=== PATIENT | female | born 1965 | race Asian ===

== ENCOUNTER 2018-08-13 07:34 | Outpatient (CLI) | payer OTHER ==
--- NOTE | 2018-08-13 09:40 | MRI Report ---
Reason: RADICULOPATHY,CERVICAL REGION Procedure Date: 08/13/2018 Accession Number: [id number] / [id number] Procedure: MRI - Cervical Spine W/O CPT Code: FULL RESULT: EXAM: MRI CERVICAL SPINE WITHOUT CONTRAST EXAM DATE: 08/13/2018 08:39 AM. CLINICAL HISTORY: Radiculopathy, cervical region. Neck pain, reportedly radiating to the right arm. COMPARISONS: MRI CERVICAL SPINE 05/29/2012 12:32 PM. TECHNIQUE: Multiplanar, multisequence T1-weighted and fluid-sensitive sequences of the cervical spine without contrast. Other: None. FINDINGS: Neurologic Structures: The visualized posterior fossa structures are unremarkable. No signal abnormality in the visualized spinal cord. Alignment: No interval change of alignment. Bone Marrow: Vertebral body heights are maintained. No acute marrow edema. Interspace Levels/Facets: C1-C2: Unremarkable. C2-C3: Minimal facet arthropathy on the left. No disk herniation or developing stenosis. C3-C4: Minimal facet arthropathy on the left. No disk herniation or developing stenosis. C4-C5: Stable appearance, no developing disk herniation or stenosis. C5-C6: Similar findings of mild degenerative disk disease with marginal spurring and broad-based posterior disk protrusion with mild ventral thecal sac indentation but no significant or progressive canal stenosis or cord impingement. Patent neural foramina bilaterally. C6-C7: Unremarkable. C7-T1: Unremarkable. Musculature: Normal. No edema or fatty atrophy. Other: The paravertebral and prevertebral soft tissues are normal. IMPRESSION: No acute abnormality or significant change. Mild degenerative changes, most evident at C5-C6 but without evidence for significant stenosis or neural impingement. RADIA
== END 2018-08-13 07:35 | disposition home or self-care (01) ==
LOC: DI 07:34
PROVIDERS: ATTEND Family Medicine
DX: M47.9 Spondylosis, unspecified (principal); M50.222 Other cervical disc displacement at C5-C6 level; M50.322 Other cervical disc degeneration at C5-C6 level
CPT/HCPCS: 72141

== ENCOUNTER 2018-08-13 07:36 | Outpatient (CLI) | payer OTHER ==
--- NOTE | 2018-08-13 09:22 | MRI Report ---
Reason: LOW BACK PAIN Procedure Date: 08/13/2018 Accession Number: [id number] / [id number] Procedure: MRI - Lumbar Spine W/O CPT Code: FULL RESULT: EXAM: MRI LUMBAR SPINE WITHOUT CONTRAST EXAM DATE: 08/13/2018 08:38 AM. CLINICAL HISTORY: Low back pain. Right side sciatica. COMPARISON: LUMBAR SPINE 08/16/2010 1:29 PM. TECHNIQUE: Multiplanar, multisequence T1-weighted and fluid-sensitive sequences of the lumbar spine from T12 to S1 without contrast. Other: None. FINDINGS: Spinal Canal: The conus terminates at T12-L1. The conus medullaris and cauda equina are unremarkable. Alignment: No scoliosis or spondylolisthesis. Bone Marrow: Five [id number] lumbar vertebral bodies are assumed. No gross fractures or bone lesions. No bone marrow replacement. Disk Levels/Facets: T12-L1: Unremarkable. L1-L2: Unremarkable. L2-L3: Unremarkable. L3-L4: No stenosis or disk extrusion. Stable mild degenerative marginal spurring and shallow left anterior disk bulge. L4-L5: Mild degenerative disk disease without additional disk space narrowing. Minimal marginal spurring. Shallow circumferential disk bulge. Stable additional asymmetric but minimal left of midline protrusion. Stable posterior left of midline annular fissure. No significant or progressive stenosis or developing nerve root compression. L5-S1: Similar findings of mild degenerative disk disease. Unremarkable facets. Patent central canal and left foramen. There is now potentially progressive mild to moderate foraminal stenosis on the right from mildly more prominent asymmetric right intraforaminal disk protrusion with marginal spurring and an annular fissure. Musculature: Normal. No edema or fatty atrophy. Other: None. IMPRESSION: 1. Stable unremarkable findings at T12-L1 through L2-L3. 2. Mild degenerative changes without stenosis at L3-L4. 3. Stable degenerative changes without significant-appearing or progressive stenosis at L4-L5. 4. Mild to moderate foraminal stenosis on the right, likely more prominent from a relatively mild but progressive intraforaminal asymmetric disk protrusion with osteophyte. Comment: The following findings are so common in adults without low back pain that while we report their presence, they must be interpreted with caution and in the context of the clinical situation. (Reference Jimmyk et al, Spine 2001) Prevalence of findings in patients without low back pain: Disk degeneration (any evidence): 92% Disk desiccation/T2 signal loss: 83% Disk height loss: 56% Disk bulge: 64% Disk protrusion: 32% Annular tear/high intensity zone: 38% RADIA
== END 2018-08-13 07:37 | disposition home or self-care (01) ==
LOC: DI 07:36
PROVIDERS: ATTEND Family Medicine
DX: M51.36 Other intervertebral disc degeneration, lumbar region (principal); M48.061 Spinal stenosis, lumbar region without neurogenic claudication; M51.26 Other intervertebral disc displacement, lumbar region; M51.27 Other intervertebral disc displacement, lumbosacral region; M47.9 Spondylosis, unspecified; M50.222 Other cervical disc displacement at C5-C6 level; M50.322 Other cervical disc degeneration at C5-C6 level
CPT/HCPCS: 72141; 72148

== ENCOUNTER 2018-10-06 08:53 | Outpatient (CLI) | payer OTHER | END 2018-10-06 08:54 | disposition short-term general hospital (02) | LOC: EMS 08:53 | PROVIDERS: ATTEND Surgery | DX: R07.89 Other chest pain (principal); R10.13 Epigastric pain; M79.602 Pain in left arm; M54.2 Cervicalgia | CPT/HCPCS: A0425; A0433 ==

== ENCOUNTER 2018-11-10 05:49 | Day surgery (SDC) | payer OTHER ==
[2018-11-10] MEDS ORDERED: ceFAZolin 2 GM/50 ML 2 GM/50 ML BAG IV ONE (06:30)
--- NOTE | 2018-11-10 07:05 | ANESTHESIA ---
Pre-Anesthesia VS, & Labs - Diagnosis perimenopausal bleeding - Procedure Myosure hysteroscopy, endometrial ablation novasure Vital Signs: Temp Pulse Resp BP Pulse Ox 36.5 C 72 16 126/86 H 99 11/10/18 06:44 11/10/18 06:44 11/10/18 06:44 11/10/18 06:44 11/10/18 06:44 Height 5 ft 4 in Weight (kg) 70.9 kg - NPO >8 hours - Is Patient ?: No Home Medications and Allergies Levothyroxine [Synthroid] 75 mcg PO DAILY 04/26/16 Aspirin [Aspirin EC] 81 mg PO 10/03/18 Carvedilol [Coreg] 12.5 mg PO BID 10/03/18 Cholecalciferol (Vitamin D3) [Vitamin D3] 1,000 unit PO 10/03/18 Clobetasol 0.05% Oint [Temovate 0.05% Oint] 1 applic TOP 10/03/18 Cyclobenzaprine [Flexeril] 10 mg PO TID PRN 10/03/18 Empagliflozin [Jardiance] 10 mg PO 10/03/18 Evolocumab [Repatha Syringe] 140 mg SQ 10/03/18 Gabapentin [Neurontin] 100 mg PO TID 10/03/18 Insulin Aspart [NovoLOG] 2 unit SUBQ DAILY 10/03/18 Insulin Detemir [Levemir Flextouch] 35 unit SUBQ BID 10/03/18 Lidocaine [Topicaine 5] 113 gm TP 10/03/18 Liraglutide [Victoza 2-Bong] 1.8 mg SQ 10/03/18 Losartan [Cozaar] 25 mg PO DAILY 10/03/18 Omeprazole 20 mg PO 10/03/18 Spironolactone [Aldactone] 25 mg PO BID 10/03/18 Tretinoin [Retin-A] 20 gm TP 10/03/18 Turmeric Root Extract [Turmeric Curcumin] 500 mg PO 10/03/18 Vitamin B Complex 1 each PO 10/03/18 Allergies/Adverse Reactions: Allergies Allergy/AdvReac Type Severity Reaction Status Date / Time Sulfa (Sulfonamide AdvReac Unknown Verified 10/03/18 11:38 Antibiotics) sulfadiazine AdvReac fever Verified 04/26/16 06:01 Anes History & Medical History - Anesthetic History Anesthesia Complications: reports: No previous complications Family history of Anesthesia Complications: Denies Family history of Malignant Hyperthermia: Denies - Medical History Cardiovascular: reports: Hypertension, High cholesterol, Coronary artery disease, [place] Pulmonary: reports: None Gastrointestinal: reports: GERD Urinary: reports: None Musculoskeletal: reports: Chronic back pain, Other Endocrine/Autoimmune: reports: Type 2 diabetes, HyPOthyroidism Skin: reports: None Smoking Status: Never smoker - Surgical History General: Colonoscopy Cardiothoracic: Coronary stent Gynecologic: LEEP (Cervical surgery) Exam General: Alert, Oriented x3 Dental: WNL Mouth Openin Fingerbreadth Neck Mobility: Normal Mallampati classification: II Thyromental Distance: 4-6 cm Respiratory: Lungs clear, Normal breath sounds Cardiovascular: Regular rate Neurological: Normal speech Mental/Cognitive Status: Alert/Oriented X3, Normal for patient Cognitive Status: Within normal limits Plan Anesthesia Type: General Consent for Procedure(s) Verified and Reviewed: Yes Code Status: Attempt Resuscitation ASA classification: 3-Severe systemic disease Is this case an emergency?: No
[2018-11-10] MEDS ORDERED: LACTATED RINGERS 1,000 ML IV ONE (07:06)
[2018-11-10] MEDS ORDERED: VASOPRESSIN 20 UNIT/ML VIAL ONE (07:27)
[2018-11-10] MEDS ORDERED: LIDOCAINE MPF 2%-EPI 1:200000 20 ML VIAL ONE (07:27)
[2018-11-10] MEDS ORDERED: DEXAMETHASONE 4 MG/ML VIAL IVP ONE (08:05)
[2018-11-10] MEDS ORDERED: LIDOCAINE-MPF 2% 5 ML VIAL IM ONE (08:05)
[2018-11-10] MEDS ORDERED: PROPOFOL 200 MG/20 ML VIAL IVP ONE (08:05)
[2018-11-10] MEDS ORDERED: ONDANSETRON 4 MG/2 ML VIAL IVP ONE (08:05)
[2018-11-10] MEDS ORDERED: fentaNYL 100 MCG/2 ML VIAL IVP ONE (08:05)
[2018-11-10] MEDS ORDERED: MIDAZOLAM 2 MG/2 ML VIAL IVP ONE (08:05)
[2018-11-10] MEDS ORDERED: KETOROLAC 30 MG/ML VIAL IVP ONE (08:05)
[2018-11-10] MEDS ORDERED: LIDOCAINE 2%-EPI 1:100000 20 ML MDV SUBQ ONE (08:07)
[2018-11-10] MEDS ORDERED: ONDANSETRON 4 MG/2 ML VIAL IVP PRN (08:40)
[2018-11-10] MEDS ORDERED: HYDROcod/ACETAM 10 MG/325 MG TABLET PO PRN (08:40)
--- NOTE | 2018-11-10 08:44 | OPERATIVE REPORT ---
Operative Report - General Procedure Date: 11/10/18 Planned Procedure: Hysteroscopy, dilatation and curettage, endometrial ablation Pre-Op Diagnosis: Abnormal uterine bleeding Procedure Performed: Hysteroscopy, dilatation and curettage and Myosure, endometrial ablation (Novasure) Post Op Diagnosis: Abnormal uterine bleeding, endometrial polyp - Procedure Note Primary Surgeon: Dr. Tatiana Lion Secondary Surgeon: None Anesthesia Provider: Dr. Dwain Navarro Anesthesia Technique: General LMA Pathology: 1. Endocervical curettings 2. Endometrial polyp 3. Endometrial curettings IV Fluids (mL): 500 Estimated Blood Loss (mL): 4 Urine Output (mL): 50 Indications: The patient is a 53-year-old 2 para 2 female here for surgical evaluation and management of abnormal uterine bleeding. Her symptoms started in February of last year. She has a history of very heavy menses and leaking around her pad, followed by no bleeding for 5-6 months last year, during which time she thought she may be menopausal. She then had a normal cycle in January. February to May, she had persistent, nearly daily bleeding that ranged from light to moderate in flow (spotting to heavy with clots). It then stopped and then restarted in May 2018 and continued until August 2018. Endometrial biopsy was performed and benign. Pelvic ultrasound was performed and showed a normal endometrial stripe with no other abnormal findings. After review of management options, the patient elected for a hysteroscopy, dilation and curettage, and endometrial ablation. The risks, benefits, limitations, alternatives, and expectations of surgery were discussed, and the consent was reviewed and signed prior to the date of surgery. Findings: Exam under anesthesia noted a retroverted uterus that was approximately 7 weeks in size. Operative findings noted a mildly stenotic cervical os, which dilated readily Hegar dilators. The uterine cavity length was measured to be 7 cm. The endometrial cavity width was noted to be 3 cm. Hysteroscopic findings noted an approximately 1 cm endometrial polyp originating from the right fundus. There also appeared to be a 0.5 cm submucosal fibroid anterior to the left tubal ostium. Post-Myosure, the polypoid tissue was completely resected, but the submucosal fibroid could not be reached with the Myosure. The endometrial ablation power was noted to be 66 W. Time of ablation was 1 minute 14 seconds. Hysteroscopic fluid deficit was 65 mL. Post ablation hysteroscopy noted excellent cauterization throughout the endometrial cavity. Complications: None - Other Other Information/Narrative: Procedure: The patient was taken to the operating room, where general anesthesia with LMA was administered without difficulty. She was then positioned in the high dorsal lithotomy position with her lower extremities in [place] stirrups. Vagina and perineum were then prepped and draped in a sterile fashion, and an in-an-out catheterization was performed. Procedure Time-Out was then performed. A sterile bivalve speculum was then inserted into the vagina. The anterior lip of the cervix was grasped with a single toothed tenaculum. Two percent lidocaine with epinephrine was injected at the 0200, 0400, 0700, and 1000 positions for a paracervical block. Endocervical curettage was then performed. The cervix was then serially dilated with Hegar dilators until the 30 degree diagnostic Myosure hysteroscope could be inserted. Using saline for distension, the endometrial cavity was visualized and notable for the polyp and small submucosal fibroid. The majority of the polyp tissue was removed blindly using polyp forceps, labeling the tissue "endometrial polyp." A curettage was performed, sending tissue for specimen called "endometrial curettings." The Myosure device was then used to completely resect some residual polypoid tissue at the base of the pedicle. Also attempted to resect the submucosal fibroid at the left tubal ostium. However, the device could not adequately reach into the cornu. The Novasure device was placed onto the field. The uterine cavity length and width were measured, and cavity assessment passed without concerns. The ablation was then performed for 74 sec to power of 66 Sanchez. The device was then retracted, and the hysteroscope reintroduced. Post-ablation endometrium appeared well- cauterized, and the scope was then again removed. The tenaculum was then removed from the cervix, and the tenaculum sites hemostatic with gentle pressure. No bleeding was noted, and the speculum was then removed. At this point the procedure was deemed complete. The patient was then replaced supine, awakened, extubated, and transferred to the PACU in stable condition. There were no complications. Sponge, lap, and needle count were correct x 3.
[2018-11-10 09:28] VITALS: BP 139/78
== END 2018-11-10 05:50 | disposition home or self-care (01) ==
LOC: SDS 05:49
PROVIDERS: ATTEND Obstetrics & Gynecology
PROC: 0UDB8ZZ Extraction of Endometrium, Via Natural or Artificial Opening Endoscopic (ICD-10-PCS; principal; 2018-11-10 07:30)
PROC: 0UDB7ZZ Extraction of Endometrium, Via Natural or Artificial Opening (ICD-10-PCS; 2018-11-10 07:30)
DX: N93.8 Other specified abnormal uterine and vaginal bleeding (principal); N84.0 Polyp of corpus uteri; D25.0 Submucous leiomyoma of uterus; I10 Essential (primary) hypertension; I25.10 Atherosclerotic heart disease of native coronary artery without angina pectoris; I25.2 Old myocardial infarction; Z95.5 Presence of coronary angioplasty implant and graft; E11.43 Type 2 diabetes mellitus with diabetic autonomic (poly)neuropathy; Z79.4 Long term (current) use of insulin
CPT/HCPCS: 58120; 58563; J0690; J7120

== ENCOUNTER 2019-08-21 13:07 | Emergency (ER) | payer OTHER ==
[2019-08-21] MEDS ORDERED: METOPROLOL TARTRATE 50 MG TABLET PO STA (13:19)
[2019-08-21] MEDS ORDERED: ASPIRIN CHEW 81 MG TABLET PO STA (13:19)
[2019-08-21] MEDS ORDERED: HEPARIN 5,000 UNIT/ML VIAL IVP STA (13:19)
[2019-08-21] MEDS ORDERED: HEPARIN 25000UNITS/500ML (D5W) 25,000 UNIT/500 ML BAG IV STA (13:19)
[2019-08-21] MEDS ORDERED: NITROGLYCERIN SL 0.4 MG TABLET SL ONE (13:21)
[2019-08-21] MEDS ORDERED: METOPROLOL TARTRATE 50 MG TABLET ONE (13:22)
[2019-08-21] MEDS ORDERED: HEPARIN 5,000 UNIT/ML VIAL ONE (13:22)
[2019-08-21] MEDS ORDERED: ASPIRIN CHEW 81 MG TABLET ONE (13:22)
[2019-08-21] MEDS ORDERED: CLOPIDOGREL 300 MG TABLET PO ONE (13:22)
[2019-08-21] MEDS ORDERED: HEPARIN 25000UNITS/500ML (D5W) 25,000 UNIT/500 ML BAG IV ONE (13:22)
--- NOTE | 2019-08-21 13:22 | ED Physician Documentation ---
PD HPI CHEST PAIN - Stated complaint Stated Complaint: CP, SOA - History obtained from History obtained from: Patient - History of Present Illness Timing - onset: Other (54-year-old woman with history of coronary disease, a STEMI in [address] in [address]. She developed sudden onset substernal chest pressure nonradiating, currently a 3 out of 10. It started about 3-1/2 hours ago while at work at her desk. She has mild shortness of breath.) Review of Systems Ten Systems: 10 systems reviewed and negative Constitutional: denies: Fever, Chills Throat: denies: Dental pain / toothache, Sore throat Cardiac: reports: Chest pain / pressure. 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) Cardiovascular: Coronary stent - Present Medications Home Medications: Ambulatory Orders Medication Instructions Recorded Confirmed Levothyroxine [Synthroid] 75 mcg PO DAILY 04/26/16 10/03/18 Aspirin [Aspirin EC] 81 mg PO 10/03/18 Cholecalciferol (Vitamin D3) 1,000 unit PO 10/03/18 [Vitamin D3] Clobetasol 0.05% Oint [Temovate 1 applic TOP 10/03/18 0.05% Oint] Cyclobenzaprine [Flexeril] 10 mg PO TID PRN 10/03/18 10/03/18 Empagliflozin [Jardiance] 10 mg PO 10/03/18 Evolocumab [Repatha Syringe] 140 mg SQ 10/03/18 Gabapentin [Neurontin] 100 mg PO TID 10/03/18 10/03/18 Insulin Aspart [NovoLOG] 2 unit SUBQ DAILY 10/03/18 10/03/18 Insulin Detemir [Levemir Flextouch] 35 unit SUBQ BID 10/03/18 10/03/18 Lidocaine [Topicaine 5] 113 gm TP 10/03/18 Liraglutide [Victoza 2-Bong] 1.8 mg SQ 10/03/18 Losartan [Cozaar] 25 mg PO DAILY 10/03/18 10/03/18 Omeprazole 20 mg PO 10/03/18 Spironolactone [Aldactone] 25 mg PO BID 10/03/18 10/03/18 Tretinoin [Retin-A] 20 gm TP 10/03/18 Turmeric Root Extract [Turmeric 500 mg PO 10/03/18 Curcumin] Vitamin B Complex 1 each PO 10/03/18 carvediloL [Coreg] 12.5 mg PO BID 10/03/18 10/03/18 - Allergies Allergies/Adverse Reactions: Allergies Allergy/AdvReac Type Severity Reaction Status Date / Time Sulfa (Sulfonamide AdvReac Unknown Verified 08/21/19 13:22 Antibiotics) sulfadiazine AdvReac fever Verified 08/21/19 13:22 - Social History Does the pt smoke?: No Smoking Status: Never smoker Does the pt have substance abuse?: No - Immunizations Immunizations are current?: Yes - POLST Patient has POLST: No PD ED PE NORMAL - Vitals Vital signs reviewed: Yes - General General: Alert and oriented X 3, No acute distress - HEENT HEENT: PERRL, EOMI - Neck Neck: Supple, no meningeal sign, No bony TTP - Cardiac Cardiac: RRR, No murmur - Respiratory Respiratory: No respiratory distress, Clear bilaterally - Abdomen Abdomen: Soft, Non tender - Back Back: No CVA TTP, No spinal TTP - Derm Derm: Normal color, Warm and dry - Extremities Extremities: No edema, No calf tenderness / cord - Neuro Neuro: Alert and oriented X 3, No motor deficit, No sensory deficit, Normal speech Results - Vitals Vitals: Vital Signs - 24 hr 08/21/19 08/21/19 13:19 13:25 Temperature 37.0 C Heart Rate 100 67 Respiratory 12 16 Rate Blood Pressure 188/90 H 141/99 H O2 Saturation 100 100 Oxygen O2 Source Room air - EKG (time done) 1320 Rate: Rate (enter#) (55) Rhythm: NSR [place]: Normal Intervals: Normal SD QRS: LVH Ischemia: ST elevation c/w ischemia (Inferior) Computer interpretation: Agree with computer PD MEDICAL DECISION MAKING - ED course ED course: 54-year-old woman seen immediately upon arrival, looks like an inferior STEMI. Review of old EKGs show that this actually looks a fair amount like her pre- stent EKG when seen in 2016. That said it still concerning and her pain is very typical and therefore a STEMI code was called and she was accepted by Dr. Guido to [facility], cobras were completed. She was started on heparin, given some oral metoprolol and aspirin. Nitroglycerin was held given mild pain and the potential for hemodynamic collapse given the inferior involvement. She was expeditiously transferred to for transfer to [facility] for cardiac evaluation. Departure - Departure Disposition: 02 Transfer Acute Care Hosp Clinical Impression: STEMI (ST elevation myocardial infarction) Condition: Critical Discharge Date/Time: 08/21/19 13:37
[2019-08-21 13:27] VITALS: BP 141/99
[2019-08-21] MEDS ORDERED: CLOPIDOGREL 300 MG TABLET PO STA (13:40)
--- NOTE | 2019-08-21 13:41 | XRAY Report ---
Reason: chest pain Procedure Date: 08/21/2019 Accession Number: [id number] / [id number] Procedure: XR - Chest 1 View X-Ray CPT Code: 18893 Final Report FULL RESULT: EXAM: CHEST RADIOGRAPHY EXAM DATE: 08/21/2019 01:32 PM. CLINICAL HISTORY: Chest pain. COMPARISON: 02/22/2010 3:17 PM. TECHNIQUE: 1 view. FINDINGS: Lungs/Pleura: No focal opacities evident. No pleural effusion. No pneumothorax. Mediastinum: Within exam limitations, the cardiomediastinal contour is normal. Other: None. IMPRESSION: Normal single view chest. RADIA
== END 2019-08-21 13:37 | disposition short-term general hospital (02) ==
LOC: ED 13:07
DX: I21.19 ST elevation (STEMI) myocardial infarction involving other coronary artery of inferior wall (principal); I10 Essential (primary) hypertension; I25.10 Atherosclerotic heart disease of native coronary artery without angina pectoris; I25.2 Old myocardial infarction; Z95.5 Presence of coronary angioplasty implant and graft; E11.9 Type 2 diabetes mellitus without complications; Z79.4 Long term (current) use of insulin; Z79.82 Long term (current) use of aspirin
CPT/HCPCS: 71045; 93005; 96374; 99284; 99285; A9270; 80053; 83690; 83880; 84484; 85025; 85610; 85730

== ENCOUNTER 2019-08-21 13:48 | Outpatient (CLI) | payer OTHER | END 2019-08-21 13:49 | disposition short-term general hospital (02) | LOC: EMS 13:48 | PROVIDERS: ATTEND Surgery | DX: R07.9 Chest pain, unspecified (principal) | CPT/HCPCS: A0425; A0426 ==